=== PATIENT | male | born 1940 | race Caucasian/White ===

== ENCOUNTER → 2021-08-28 10:12 | Outpatient (BNVA) | payer OTHER, SELFPAY | PROVIDERS: PCP Internal Medicine; Visit Provider Nurse Practitioner Family | DX: G20 Parkinson's disease (principal); G47.33 Obstructive sleep apnea (adult) (pediatric); G47.62 Sleep related leg cramps | CPT/HCPCS: 99212 ==

== ENCOUNTER → 2021-11-28 10:36 | Outpatient (BNVA) | payer OTHER, SELFPAY | PROVIDERS: PCP Internal Medicine; Visit Provider Nurse Practitioner Family | DX: G20 Parkinson's disease (principal); G47.33 Obstructive sleep apnea (adult) (pediatric); G47.62 Sleep related leg cramps; S92.902D Unspecified fracture of left foot, subsequent encounter for fracture with routine healing | CPT/HCPCS: 99212 ==

== ENCOUNTER → 2022-03-05 13:53 | Outpatient (BNVA) | payer OTHER, SELFPAY | PROVIDERS: PCP Internal Medicine; Visit Provider Nurse Practitioner Family | DX: G20 Parkinson's disease (principal); M79.89 Other specified soft tissue disorders; S92.902A Unspecified fracture of left foot, initial encounter for closed fracture; G47.62 Sleep related leg cramps | CPT/HCPCS: 99212 ==

== ENCOUNTER → 2022-06-05 14:10 | Outpatient (BNVA) | payer OTHER, SELFPAY | PROVIDERS: PCP Internal Medicine; Visit Provider Nurse Practitioner Family | DX: G20 Parkinson's disease (principal); M79.89 Other specified soft tissue disorders; G47.62 Sleep related leg cramps; Z79.899 Other long term (current) drug therapy | CPT/HCPCS: 99212 ==

== ENCOUNTER → 2022-09-17 14:09 | Outpatient (BNVA) | payer OTHER, SELFPAY | PROVIDERS: PCP Internal Medicine; Visit Provider Nurse Practitioner Family | DX: G20 Parkinson's disease (principal); R42 Dizziness and giddiness | CPT/HCPCS: 99212 ==

== ENCOUNTER 2023-01-20 13:47 | Outpatient (AMB) | payer OTHER, SELFPAY ==
[2023-01-20 13:56] VITALS: BP 148/64; PULSE 70; O2SAT 98; BMI 25.3
--- NOTE | 2023-01-20 13:56 | MHC.OFFVIS ---
Intake Vital Signs 01/20/23 13:56 Height 5 ft 2 in Weight 138 lb 4 oz BMI 25.3 BP 148/64 H Blood Pressure Location Rt brachial Position Sitting Pulse 70 Pulse Source Pulse Oximeter Pulse Oximetry (%) 98 Oxygen Delivery Method Room Air Intake Visit Reasons: 4m follow up parkinson Intake Note: Pt presents with her caregiver, as a 4 month f/u for Parkinsons. pt states that things are the same. She has some concern about the swelling in her legs. Java Sql Developer Required: No Allergies Sulfa (Sulfonamide Antibiotics) Allergy (Mild, Verified 01/20/23 14:02) unknown HPI HPI Comments History of Present Illness Details 82-yr-old female presents for f/u visit, accompanied by her MEN'S AND BOYS' CLOTHING SALESPERSON. Pt reports the following interval medical history changes: In she had a hospitalization for COVID-10 and PNA. After d/c, she returned to the hospital- d/t elevated ammonia levels and was told hse had fluid around the heart d/t the COVID infection. During this visit, her furosemide dose was increased to 40mg qam. Pt's current PD medication regimen: Carbidopa-Levodopa 25-100mg 2 tabs tid. Ropinirole 0.25mg 2 tabs qhs and CD/LD ER 50-200mg qhs. ADL's: needing some assist Swallowing: No issues Cough: No issues Drooling: No issues Orthostatic lightheadedness: Mild spinning- not lasting as long. She notes that myself and her PCP have told her to take lots of fluids but cardiology has given her a diuretic and told her to not take any water at all. Constipation: None- on Lactulose per GI Freezing: None Stiffness: Some. Sometimes both hands/fingers becomes stuck and postured. Tremor: A bit better Falls: No falls Hallucinations: None Memory: Stable Sleep: Sleeps ok- a bit more, but sleep is fragmented.?? ? PFSH Medical History Anemia COPD (chronic obstructive pulmonary disease) COVID-19 Family hx total abdominal hysterectomy/bilateral salpingo-oophorectomy History of fracture of left ankle HTN (hypertension) Hypothyroidism Non-alcoholic cirrhosis Psoriatic arthritis Surgical History H/O hand surgery History of back surgery Family History Father Cancer Mother Hair loss Social History Alcohol intake: never Patient Tobacco Use Status: Never used Tobacco Review of Systems Const All systems reviewed & are unremarkable except as noted in HPI and below Physical Exam Vital Signs: Last Vital Signs Pulse 70 01/20/23 13:56 BP 148/64 H 01/20/23 13:56 Pulse Ox 98 01/20/23 13:56 Oxygen Delivery Method Room Air 01/20/23 13:56 BMI result Body Mass Index 25.3 Const General: cooperative and no acute distress Resp Effort & Inspection: normal respiratory effort and able to speak in complete sentences Neuro Other: Expression: Decreased expression and blink. Voice: Mild hypophonia Tremor: No tremor noted. Tone: Mild BUE tone FFM: BUE mildly decreased Foot taps: BLE decreased, R>L Gait: Slow to stand, short steps with and cane. Psych: Pleasant affect Extrem Other: R > L BLE swelling Assessment & Plan Assessment & Plan (1) Parkinson's disease: Code(s): G20 - Parkinson's disease (2) Orthostatic lightheadedness: Code(s): R42 - Dizziness and giddiness Plan Will request cardiology note to clarify ? fluid restriction. Would avoid increasing CD-LD or requip as this point d/t risk of worsening orthostatic lightheadedness/dizziness. ? Continue carbidopa levodopa 25-100 mg 2 tabs p.o. t.i.d. at 08:00, 12:00, 16:00. Continue carbidopa levodopa ER 50-200 mg q.h.s. at 21:00.? Continue ropinirole to 0.25 mg 1-2 tabs q.h.s. Continue magnesium q.h.s. Continue Lactulose and increased fiber. Continue PT exercises, rest as needed, elevate legs as able. Try adding FFM and foot taps exercises. Will monitor sleep symptoms as CPAP has stopped. ? f/u in 3-4 months or sooner prn Coding Level of Care Code Est Pt Level 4 (32900) Diagnoses Parkinson's disease G20 Orthostatic lightheadedness R42
== END 2023-01-20 14:43 | disposition home or self-care (01) ==
PROVIDERS: Visit Provider Nurse Practitioner Family
DX: G20 Parkinson's disease (principal); R42 Dizziness and giddiness
CPT/HCPCS: 99214

== ENCOUNTER → 2023-01-20 13:47 | Outpatient (BNVA) | payer OTHER, SELFPAY | PROVIDERS: Visit Provider Nurse Practitioner Family | DX: G20 Parkinson's disease (principal); R42 Dizziness and giddiness | CPT/HCPCS: 99212 ==

== ENCOUNTER 2023-05-26 13:59 | Outpatient (AMB) | payer OTHER, SELFPAY ==
--- NOTE | 2023-05-26 14:13 | MHC.OFFVIS ---
Intake Vital Signs 05/26/23 14:15 Height 5 ft 2 in Weight 138 lb BMI 25.2 BP 136/64 Blood Pressure Location Rt brachial Position Sitting Pulse 71 Pulse Source Pulse Oximeter Pulse Oximetry (%) 99 Oxygen Delivery Method Room Air Intake Visit Reasons: 4m follow up parkinson/ Lvm Intake Note: Patient presents for 4 month follow up. Allergies Sulfa (Sulfonamide Antibiotics) Allergy (Mild, Verified 05/26/23 14:15) unknown Medication List - Last Reconciled 05/26/23 by TARIQ Caban albuterol sulfate 90 mcg/actuation (Ventolin HFA) 2 puffs PO Q4H PRN ascorbate calcium (vitamin C) 500 mg PO DAILY biotin 5,000 mcg sublingual DAILY blood sugar diagnostic (FreeStyle Lite Strips) As directed blood-glucose meter (FreeStyle Lite Meter kit) As directed carbidopa-levodopa 25-100 mg (Sinemet) 2 tabs PO TID 90 days carbidopa-levodopa 50-200 mg ER 1 tab PO BEDTIME 90 days cholecalciferol (vitamin D3) 125 mcg PO QWEEK fluticasone furoate-vilanterol 100-25 mcg/dose (Breo Ellipta) 1 ea inhalation DAILY furosemide 40 mg PO DAILY gabapentin 600 mg PO BID insulin asp prt-insulin aspart 100 unit/mL (70-30) (Novolog Mix 70-30 U-100 Insuln) 50 units subcut BID insulin asp prt-insulin aspart 100 unit/mL (70-30) (Novolog Mix 70-30FlexPen U-100) 30 - 40 units subcut BID ketorolac 0.5% 1 drp ophthalmic (eye) TID lactulose mL PO levothyroxine 100 mcg PO DAILY losartan 100 mg PO DAILY mecobalamin (vitamin B12) mcg PO montelukast 10 mg PO DAILY rifaximin (Xifaxan) 550 mg PO BID ropinirole 0.5 mg (2 x 0.25 mg) PO BEDTIME 30 days trazodone 100 mg PO BEDTIME vitamins A,C,F-typt-gzcfom 4,296 mcg-226 mg-90 mg (PreserVision AREDS) 1 cap PO BID HPI HPI Comments History of Present Illness Details 82 -yr-old female presents for f/u visit, accompanied by her CERTIFIED PHYSICAL THERAPIST ASSISTANT. Pt denies any interval medical changes. Pt's primary concerns are: Increased am tremor. even after taking her CD-LD- for instance today she dropped her spoon while eating breakfast. Wakes up at 8-8:30am, 1st dose of CD-LD at this time. Eats around 9-9:30.? Pt's current PD medication regimen: Carbidopa-Levodopa 25-100mg 2 tabs tid. Ropinirole 0.25mg 2 tabs qhs and CD/LD ER 50-200mg qhs at 10pm. ADL's: needing some assist Swallowing: No issues Cough: No issues Drooling: No issues Orthostatic lightheadedness: Mild Constipation: None- on Lactulose per GI Freezing: None Stiffness: Some. Sometimes both hands/fingers becomes stuck and postured. Tremor: As above. Gait: Can feel like there is no weight in her legs Falls: No falls Hallucinations: None Memory: Stable Sleep: Sleeps is fragmented- just not sleeping. Sometimes even taking Requip- she has BLE restlessness- and needs to get up and walk.? [facility] Medical History Anemia COPD (chronic obstructive pulmonary disease) COVID-19 Family hx total abdominal hysterectomy/bilateral salpingo-oophorectomy History of fracture of left ankle HTN (hypertension) Hypothyroidism Non-alcoholic cirrhosis Psoriatic arthritis Surgical History H/O hand surgery History of back surgery Family History Father Cancer Mother Hair loss Social History Alcohol intake: never Patient Tobacco Use Status: Never used Tobacco Review of Systems Const All systems reviewed & are unremarkable except as noted in HPI and below Physical Exam Vital Signs: Last Vital Signs Pulse 71 05/26/23 14:15 BP 136/64 05/26/23 14:15 Pulse Ox 99 05/26/23 14:15 Oxygen Delivery Method Room Air 05/26/23 14:15 BMI result Body Mass Index 25.2 Const General: cooperative and no acute distress Resp Effort & Inspection: normal respiratory effort and able to speak in complete sentences Neuro Other: General: A&O x's 3 Expression: Decreased expression and blink. Voice: Mild hypophonia Tremor: No tremor noted. Tone: Mild BUE tone FFM: BUE mildly decreased Foot taps: BLE bradykinesia, R>L Gait: Needs assist and is slow to stand, short steps, steady w/ cane. Psych: Pleasant affect Assessment & Plan Assessment & Plan (1) Parkinson's disease without dyskinesia: Code(s): G20.A1 - Parkinson's disease without dyskinesia, without mention of fluctuations (2) Nocturnal leg cramps: Code(s): G47.62 - Sleep related leg cramps Plan Continue carbidopa levodopa 25-100 mg 2 tabs p.o. t.i.d. at 08:00, 12:00, 16:00. Continue carbidopa levodopa ER 50-200 mg q.h.s. at 21:00.? Add Ropinirole ER 2mg qhs at 10pm- in hopes this helps am tremor and bedtime RLS s/s. On 1st few days of taking Ropiniorle XR- try holding ropinirole 0.25 mg 1-2 tabs q.h.s. Continue magnesium q.h.s. Continue Lactulose and increased fiber. Continue PT exercises, rest as needed, elevate legs as able. Try adding FFM and foot taps exercises. Will monitor sleep symptoms as CPAP has stopped. ? f/u in 3-4 months or sooner prn Medications: New ropinirole ER at 10 PM 2 mg PO BEDTIME 30 days 30 tabs 3RF Coding Level of Care Code Est Pt Level 4 (52994) Diagnoses Parkinson's disease without dyskinesia G20.A1 Nocturnal leg cramps G47.62
[2023-05-26 14:15] VITALS: BP 136/64; PULSE 71; O2SAT 99; BMI 25.2
== END 2023-05-26 14:57 | disposition home or self-care (01) ==
PROVIDERS: PCP Internal Medicine; Visit Provider Nurse Practitioner Family
DX: G20.A1 Parkinson's disease without dyskinesia, without mention of fluctuations (principal); G47.62 Sleep related leg cramps
CPT/HCPCS: 99214

== ENCOUNTER → 2023-05-26 13:59 | Outpatient (BNVA) | payer OTHER, SELFPAY | PROVIDERS: PCP Internal Medicine; Visit Provider Nurse Practitioner Family | DX: G20.A1 Parkinson's disease without dyskinesia, without mention of fluctuations (principal); G47.62 Sleep related leg cramps | CPT/HCPCS: 99212 ==

== ENCOUNTER 2023-09-22 14:07 | Outpatient (AMB) | payer OTHER, SELFPAY ==
[2023-09-22 14:21] VITALS: BP 130/78; PULSE 77; O2SAT 98; BMI 27.1
--- NOTE | 2023-09-22 14:21 | MHC.OFFVIS ---
Intake Vital Signs 09/22/23 14:21 Height 5 ft 2 in Weight 148 lb BMI 27.1 BP 130/78 Blood Pressure Location Rt brachial Position Sitting Pulse 77 Pulse Source Pulse Oximeter Pulse Oximetry (%) 98 Oxygen Delivery Method Room Air Intake Visit Reasons: 4 mnts f/u Parkinson's, RLS-CONF Intake Note: Patient presents for follow up parkinson's. Allergies Sulfa (Sulfonamide Antibiotics) Allergy (Mild, Verified 09/22/23 14:26) unknown HPI HPI Comments History of Present Illness Details 82 -yr-old female presents for f/u visit, accompanied by her MASS SPEC. Pt denies any interval medical changes. She is scheduled for a f/u abd MRI- to better assess a pancreatic lesion. Pt did try Requip XR 2mg qhs- but did not tolerate and did not find effective, so we added a CD-LD ER 50-200mg 7pm dose and Nourianz 20mg qhs dose- which has been helpful. Pt's current PD medication regimen: Carbidopa-Levodopa 25-100mg 2 tabs tid. CD/LD ER 50-200mg 1 tab at 7pm and 11pm. Ropinirole 0.25mg 2 tabs qhs. Nourianz 20mg qhs. ADL's: needing some assist Swallowing: No issues Cough: No issues Drooling: No issues Orthostatic lightheadedness: Can feel not right in space sensation upon standing. Maybe does not drink enough. Constipation: None- on Lactulose per GI Freezing: At times. Stiffness: Can be stiff. Sometimes both hands/fingers becomes stuck and postured. Tremor: As above. Gait: Can feel like her legs are not able to hold up her body- more so after standing up. No falls. Falls: No falls Hallucinations: None Memory: Stable Sleep: Sleeping is better. Restlessness is better. PFSH Medical History Anemia COPD (chronic obstructive pulmonary disease) COVID-19 Family hx total abdominal hysterectomy/bilateral salpingo-oophorectomy History of fracture of left ankle HTN (hypertension) Hypothyroidism Non-alcoholic cirrhosis Psoriatic arthritis Surgical History H/O hand surgery History of back surgery Family History Father Cancer Mother Hair loss Social History Alcohol intake: never Patient Tobacco Use Status: Never used Tobacco Review of Systems Const All systems reviewed & are unremarkable except as noted in HPI and below Physical Exam Vital Signs: Last Vital Signs Pulse 77 09/22/23 14:21 BP 130/78 09/22/23 14:21 Pulse Ox 98 09/22/23 14:21 Oxygen Delivery Method Room Air 09/22/23 14:21 BMI result Body Mass Index 27.1 Const General: cooperative and no acute distress Resp Effort & Inspection: normal respiratory effort and able to speak in complete sentences Neuro Other: General: A&O x's 3 Expression: Decreased expression and blink. Voice: Mild hypophonia Tremor: No tremor noted. Tone: Mild BUE tone FFM: BUE mildly decreased Foot taps: BLE bradykinesia Gait: Needs assist and is slow to stand, short steps, steady w/ cane. Psych: Pleasant affect Assessment & Plan Assessment & Plan (1) Parkinson's disease without dyskinesia: Code(s): G20.A1 - Parkinson's disease without dyskinesia, without mention of fluctuations (2) Orthostatic lightheadedness: Code(s): R42 - Dizziness and giddiness (3) Obstructive sleep apnea: Comment: HST: AHI 16 per hour, REM AHI 21 per hour, O2 asuncion 74%. Patient did not tolerate CPAP. Code(s): G47.33 - Obstructive sleep apnea (adult) (pediatric) (4) Nocturnal leg cramps: Code(s): G47.62 - Sleep related leg cramps Plan Continue carbidopa levodopa 25-100 mg 2 tabs p.o. t.i.d. at 08:00, 12:00, 16:00. Continue carbidopa levodopa ER 50-200 mg q.h.s. at 7pm and 11pm.? Ropinirole ER 2mg qhs- stopped- not effective or tolerated. Continue Ropinirole 0.25 mg 2 tabs q.h.s. Continue Nourianz 20mg at bedtime. Continue magnesium q.h.s. prn. Continue Lactulose and increased fiber. Increase fluids. Resume PT exercises, rest as needed, elevate legs as able. Will monitor sleep symptoms as CPAP has stopped. ? f/u in 4 months or sooner prn Coding Level of Care Code Est Pt Level 4 (23835) Diagnoses Parkinson's disease without dyskinesia G20.A1 Orthostatic lightheadedness R42 Obstructive sleep apnea G47.33 Nocturnal leg cramps G47.62
== END 2023-09-22 15:26 | disposition home or self-care (01) ==
PROVIDERS: PCP Internal Medicine; Visit Provider Nurse Practitioner Family
DX: G20.A1 Parkinson's disease without dyskinesia, without mention of fluctuations (principal); R42 Dizziness and giddiness; G47.33 Obstructive sleep apnea (adult) (pediatric); G47.62 Sleep related leg cramps
CPT/HCPCS: 99214

== ENCOUNTER → 2023-09-22 14:07 | Outpatient (BNVA) | payer OTHER, SELFPAY | PROVIDERS: PCP Internal Medicine; Visit Provider Nurse Practitioner Family | DX: G20.A1 Parkinson's disease without dyskinesia, without mention of fluctuations (principal); G25.81 Restless legs syndrome; G47.62 Sleep related leg cramps; G47.33 Obstructive sleep apnea (adult) (pediatric); R42 Dizziness and giddiness | CPT/HCPCS: 99212 ==

== ENCOUNTER 2024-01-18 11:34 | Outpatient (AMB) | payer OTHER, SELFPAY ==
[2024-01-18 11:34] VITALS: BP 112/54; PULSE 78; O2SAT 98; BMI 27.1
--- NOTE | 2024-01-18 11:34 | MHC.OFFVIS ---
Vital Signs 01/18/24 11:34 Height 5 ft 2 in Weight 148 lb BMI 27.1 BP 112/54 L Blood Pressure Location Rt brachial Position Sitting Pulse 78 Pulse Source Pulse Oximeter Pulse Oximetry (%) 98 Oxygen Delivery Method Room Air Intake Visit Reasons: 4 Month Follow up- Parkinson's-RLS Intake Note: Patient presents for 4 month follow up parkinsons. patient wants to now if she still has to continue meds you prescribed. Allergies Sulfa (Sulfonamide Antibiotics) Allergy (Mild, Verified 01/18/24 11:38) unknown HPI Comments Details: 83-yr-old female presents for f/u visit. Pt denies any significant interval medical history changes. Pt's primary concerns are: wonders how long she needs to take the PD medications. Wonders the same about her lactulose. Pt's current PD medication regimen: Carbidopa-Levodopa 25-100mg 2 tabs tid. CD/LD ER 50-200mg 1 tab at 7pm and 11pm. Ropinirole 0.25mg 2 tabs qhs. Nourianz 20mg qhs. ADL's: needing some assist Swallowing: No issues Cough: No issues Drooling: No issues Orthostatic lightheadedness: Occasionally- can feel not right in space sensation upon standing. Notes she does not feel it when the wetaher is much warmer. Constipation: None- on Lactulose per GI : no issues. Freezing: At times. Stiffness: Can be stiff. Sometimes both hands/fingers becomes stuck and postured. Tremor: Very mild- in the morning. Gait: No falls. Falls: No falls Hallucinations: None Memory: Stable Mood: No concerns Sleep: Sleeping is better. Restless legs - at times. Paresthesias- the sides of both feet have been feeling more numb. Denies tingling. Feels generally weaker when walking. Exercise: At times- at home. Other: Notes her peripheral edema has been much better. [facility] Medical History (Updated 01/18/24 @ 12:20 by TARIQ Caban) Parkinson's disease COVID-19 History of fracture of left ankle Psoriatic arthritis Non-alcoholic cirrhosis Hypothyroidism HTN (hypertension) COPD (chronic obstructive pulmonary disease) Anemia Family hx total abdominal hysterectomy/bilateral salpingo-oophorectomy Surgical History H/O hand surgery History of back surgery Family History Father Cancer Mother Hair loss Social History Alcohol intake: never Patient Tobacco Use Status: Never used Tobacco Review of Systems Const All systems reviewed & are unremarkable except as noted in HPI and below Physical Exam Vital Signs: Last Vital Signs Pulse 78 01/18/24 11:34 BP 112/54 L 01/18/24 11:34 Pulse Ox 98 01/18/24 11:34 Oxygen Delivery Method Room Air 01/18/24 11:34 BMI result Body Mass Index 27.1 Const General: cooperative and no acute distress Resp Effort & Inspection: normal respiratory effort and able to speak in complete sentences Neuro Other: General: A&O x's 3 Expression: Decreased expression and blink. Voice: Mild hypophonia Tremor: No tremor noted. Tone: Mild BUE tone FFM: BUE mildly decreased Foot taps: BLE bradykinesia Gait: Needs assist and is slow to stand, decreased arm swing, short steps, steady w/ cane. Psych: Pleasant affect Assessment & Plan Assessment & Plan (1) Parkinson's disease without dyskinesia: Code(s): G20.A1 - Parkinson's disease without dyskinesia, without mention of fluctuations Category: Medical (2) Orthostatic lightheadedness: Code(s): R42 - Dizziness and giddiness Category: Medical (3) Nocturnal leg cramps: Code(s): G47.62 - Sleep related leg cramps Category: Medical Plan Continue carbidopa levodopa 25-100 mg 2 tabs p.o. t.i.d. at 08:00, 12:00, 16:00. Continue carbidopa levodopa ER 50-200 mg q.h.s. at 7pm and 11pm.? Continue Ropinirole 0.25 mg 2 tabs q.h.s. Continue Nourianz 20mg at bedtime. Continue magnesium q.h.s. prn. Continue Lactulose and increased fiber- per GI. Encouraged pt to increase fluids- discussed different strategies as pt is often not thirsty. Physical exercise/activity as tolerated. Will monitor sleep symptoms as CPAP has stopped. Previous PD medication trials: Ropinirole ER 2mg qhs- stopped- not effective or tolerated. ? f/u in 4-6 months or sooner prn Coding Level of Care Code Est Pt Level 4 (21268) Diagnoses Parkinson's disease without dyskinesia G20.A1 Orthostatic lightheadedness R42 Nocturnal leg cramps G47.62
== END 2024-01-18 12:16 | disposition home or self-care (01) ==
PROVIDERS: PCP Internal Medicine; Visit Provider Nurse Practitioner Family
DX: G20.A1 Parkinson's disease without dyskinesia, without mention of fluctuations (principal); R42 Dizziness and giddiness; G47.62 Sleep related leg cramps
CPT/HCPCS: 99214

== ENCOUNTER → 2024-01-18 11:34 | Outpatient (BNVA) | payer OTHER, SELFPAY | PROVIDERS: PCP Internal Medicine; Visit Provider Nurse Practitioner Family | DX: G20.A1 Parkinson's disease without dyskinesia, without mention of fluctuations (principal); R42 Dizziness and giddiness; G47.62 Sleep related leg cramps | CPT/HCPCS: 99212 ==

== ENCOUNTER 2024-08-08 10:53 | Outpatient (AMB) | payer OTHER, SELFPAY ==
--- NOTE | 2024-08-08 11:02 | MHC.OFFVIS ---
Vital Signs 08/08/24 11:07 Height 5 ft 2 in Weight 155 lb BMI 28.3 BP 130/60 Blood Pressure Location Rt brachial Position Sitting Pulse 86 Pulse Source Pulse Oximeter Pulse Oximetry (%) 94 Oxygen Delivery Method Room Air Intake Visit Reasons: Follow up- Parkinson's - Conf Abrasive Mixer Helper Required: No Accompanied by: Son Allergies Sulfa (Sulfonamide Antibiotics) Allergy (Mild, Verified 08/08/24 11:04) unknown Medication List - Last Reconciled 08/08/24 by TARIQ Caban albuterol sulfate 90 mcg/actuation (Ventolin HFA) 2 puffs PO Q4H PRN ascorbate calcium (vitamin C) 500 mg PO DAILY biotin 5,000 mcg sublingual DAILY blood sugar diagnostic (FreeStyle Lite Strips) As directed blood-glucose meter (FreeStyle Lite Meter kit) As directed carbidopa-levodopa 25-100 mg (Sinemet) 2 tabs PO TID 90 days carbidopa-levodopa 50-200 mg ER 1 tab PO BID 90 days cholecalciferol (vitamin D3) 125 mcg PO QWEEK fluticasone furoate-vilanterol 100-25 mcg/dose (Breo Ellipta) 1 ea inhalation DAILY furosemide 40 mg PO DAILY gabapentin 600 mg PO BID insulin asp prt-insulin aspart 100 unit/mL (70-30) (Novolog Mix 70-30 U-100 Insuln) 50 units subcut BID insulin asp prt-insulin aspart 100 unit/mL (70-30) (Novolog Mix 70-30FlexPen U-100) 30 - 40 units subcut BID istradefylline (Nourianz) 20 mg PO DAILY 30 days lactulose mL PO levothyroxine 100 mcg PO DAILY losartan 100 mg PO DAILY mecobalamin (vitamin B12) mcg PO montelukast 10 mg PO DAILY rifaximin (Xifaxan) 550 mg PO BID ropinirole 1 mg (4 x 0.25 mg) PO BEDTIME 30 days trazodone 100 mg PO BEDTIME HPI Comments Details: 83-yr-old female presents for f/u visit for Parkinson's. Pt denies any significant interval medical history changes. States her liver dz is stable. She is most bothered by her bone pain, notes that DR Kebede, rheumatology tx's her w/ injection every few months, which heleps but wears off. Recently the pain was so intense, she was tx'd w/ an 8 day prednisone burst- which helped but caused her blood sugars to increase. She does not notice that her CD-LD affects this pain. Pt's primary concerns are: status of her Nourianz refill. Pt's current PD medication regimen: Carbidopa-Levodopa 25-100mg 2 tabs tid. CD/LD ER 50-200mg 1 tab at 7pm and 11pm. Ropinirole 0.25mg 2 tabs at 9pm and 11pm. Nourianz 20mg qhs. Note she has not taken magnesium in some time-states it was discontinued during hospitalization at some point. ADL's: needing some assist Swallowing: No issues Cough: No issues Drooling: During the day/night. Orthostatic lightheadedness: Occasionally- can feel not right in space sensation upon standing- like nothing is below her waist. Constipation: None- on Lactulose per GI : No issues. Stiffness: Can be stiff. Sometimes both hands/fingers becomes stuck and postured. Tremor: Very mild- in the morning. Gait: Walks better inside- holds onto the escobedo, and sometimes uses her cane. Her apartment is small. When outside, she is more prone to becoming stuck. Freezing: as above Falls: No falls Hallucinations: None Memory: Stable Mood: No concerns Sleep: Not as well- falls asleep, but then wakes up, and then tosses/turns. Restless legs- states are not that bad. Has some leg cramps at night. Paresthesias- the skin of the ankles feels tight/stretched, but not numbness. Exercise: Not as much. Other: Notes her peripheral edema has been better.. [facility] Medical History (Updated 08/08/24 @ 13:50 by TARIQ Caban) Parkinson's disease COVID-19 History of fracture of left ankle Psoriatic arthritis Non-alcoholic cirrhosis Hypothyroidism HTN (hypertension) COPD (chronic obstructive pulmonary disease) Anemia Family hx total abdominal hysterectomy/bilateral salpingo-oophorectomy Surgical History H/O hand surgery History of back surgery Family History Father Cancer Mother Hair loss Social History Alcohol intake: never Patient Tobacco Use Status: Never used Tobacco Physical Exam Vital Signs: Last Vital Signs Pulse 86 08/08/24 11:07 BP 130/60 08/08/24 11:07 Pulse Ox 94 08/08/24 11:07 Oxygen Delivery Method Room Air 08/08/24 11:07 BMI result Body Mass Index 28.3 Const General: cooperative and no acute distress Resp Effort & Inspection: normal respiratory effort and able to speak in complete sentences Neuro Other: General: A&O x's 3 Expression: Decreased expression and blink. Voice: Mild hypophonia Tremor: No tremor noted. Tone: Mild BUE tone FFM: BUE mildly decreased Foot taps: BLE bradykinesia, more so on right Skin: BLE distal ankle symmetric mild swelling. Gait: Needs assist and is slow to stand, decreased arm swing, short steps, steady w/ cane. Psych: Pleasant affect Assessment & Plan Assessment & Plan (1) Parkinson's disease without dyskinesia: Code(s): G20.A1 - Parkinson's disease without dyskinesia, without mention of fluctuations Category: Medical (2) Orthostatic lightheadedness: Code(s): R42 - Dizziness and giddiness Category: Medical (3) Nocturnal leg cramps: Code(s): G47.62 - Sleep related leg cramps Category: Medical (4) Sleep difficulties: Code(s): G47.9 - Sleep disorder, unspecified Category: Medical Plan Continue carbidopa levodopa 25-100 mg 2 tabs p.o. t.i.d. at 08:00, 12:00, 16:00. Continue carbidopa levodopa ER 50-200 mg q.h.s. at 7pm and 11pm.? Continue Ropinirole 0.25 mg 2 tabs at 9pm and 11pm Continue Nourianz 20mg at bedtime- confirmed with pharmacy, Prior authorization has been approved and order is being filled. Resume magnesium oxide 400 mg q.h.s. prn- for leg cramps, and sleep difficulties. Continue Lactulose and increased fiber- per GI. Continue to try to take increased fluids. Physical exercise/activity as tolerated. Discussed simple strategies to break freezing episodes when walking outside- such as stepping in place or tapping her hip with her hand. Will monitor sleep symptoms as patient is no longer using CPAP.. Previous PD medication trials: Ropinirole ER 2mg qhs- stopped- not effective or tolerated. ? f/u in 6 months or sooner prn Medications: Refilled magnesium oxide 400 mg PO BEDTIME 30 days 30 tabs 6RF carbidopa-levodopa 25-100 mg (Sinemet) 2 tabs PO TID 90 days 540 tabs 1RF Coding Level of Care Code Est Pt Level 4 (48612) Diagnoses Parkinson's disease without dyskinesia G20.A1 Orthostatic lightheadedness R42 Nocturnal leg cramps G47.62 Sleep difficulties G47.9
[2024-08-08 11:07] VITALS: BP 130/60; PULSE 86; O2SAT 94; BMI 28.3
== END 2024-08-08 11:57 | disposition home or self-care (01) ==
PROVIDERS: PCP Internal Medicine; Visit Provider Nurse Practitioner Family
DX: G20.A1 Parkinson's disease without dyskinesia, without mention of fluctuations (principal); R42 Dizziness and giddiness; G47.62 Sleep related leg cramps; G47.9 Sleep disorder, unspecified
CPT/HCPCS: 99214

== ENCOUNTER → 2024-08-08 10:53 | Outpatient (BNVA) | payer OTHER, SELFPAY | PROVIDERS: PCP Internal Medicine; Visit Provider Nurse Practitioner Family | DX: G20.A1 Parkinson's disease without dyskinesia, without mention of fluctuations (principal); G47.62 Sleep related leg cramps; G47.9 Sleep disorder, unspecified; R42 Dizziness and giddiness | CPT/HCPCS: 99212 ==

== ENCOUNTER 2025-02-09 10:24 | Outpatient (AMB) | payer OTHER, SELFPAY ==
[2025-02-09 10:41] VITALS: BP 130/60; PULSE 77; O2SAT 96; BMI 27.8
--- NOTE | 2025-02-09 10:41 | MHC.OFFVIS ---
Vital Signs 02/09/25 10:41 Height 5 ft 2 in Weight 152 lb BMI 27.8 BP 130/60 Blood Pressure Location Rt brachial Position Sitting Pulse 77 Pulse Source Pulse Oximeter Pulse Oximetry (%) 96 Oxygen Delivery Method Room Air Intake Visit Reasons: Follow up 6mo Photography Spotter Required: No Accompanied by: Self / Same As Patient Allergies Sulfa (Sulfonamide Antibiotics) Allergy (Mild, Verified 02/09/25 10:53) unknown Medication List - Last Reconciled 02/09/25 by TARIQ Caban albuterol sulfate 90 mcg/actuation (Ventolin HFA) 2 puffs PO Q4H PRN ascorbate calcium (vitamin C) 500 mg PO DAILY biotin 5,000 mcg sublingual DAILY blood sugar diagnostic (FreeStyle Lite Strips) As directed blood-glucose meter (FreeStyle Lite Meter kit) As directed carbidopa-levodopa 25-100 mg (Sinemet) 2 tabs PO TID 90 days carbidopa-levodopa 50-200 mg ER 1 tab PO BID 90 days cholecalciferol (vitamin D3) 125 mcg PO QWEEK ferrous sulfate 325 mg PO DAILY fluticasone furoate-vilanterol 100-25 mcg/dose (Breo Ellipta) 1 ea inhalation DAILY folic acid 1 mg PO DAILY furosemide 25 mg PO DAILY furosemide (Lasix) 20 mg PO DAILY gabapentin 600 mg PO BID gabapentin 100 - 300 mg (1 - 3 x 100 mg) PO DAILY 30 days insulin asp prt-insulin aspart 100 unit/mL (70-30) (Novolog Mix 70-30 U-100 Insuln) 50 units subcut BID insulin asp prt-insulin aspart 100 unit/mL (70-30) (Novolog Mix 70-30FlexPen U-100) 30 - 40 units subcut BID istradefylline (Nourianz) 20 mg PO DAILY 30 days istradefylline (Nourianz) 20 mg PO DAILY lactulose mL PO levofloxacin 250 mg PO DAILY levothyroxine 100 mcg PO DAILY losartan 100 mg PO DAILY magnesium oxide 400 mg PO BEDTIME 30 days mecobalamin (vitamin B12) mcg PO montelukast 10 mg PO DAILY pantoprazole 40 mg PO DAILY rifaximin (Xifaxan) 550 mg PO BID ropinirole 1 mg (4 x 0.25 mg) PO BEDTIME 30 days spironolactone 25 mg PO DAILY trazodone 100 mg PO BEDTIME HPI Comments Details: 84-yr-old female presents for f/u visit for Parkinson's. Patient is accompanied by her [facility] critical care unit nurse, as her son could not attend today's appointment with her. Pt reports she had 2-3 hospital evals- 1 admission to manage her ammonia levels as she became confused, 1 admission for PNA tx, and 1 had ER eval for GI s/s dehydration and diarrhea. Since she states her liver dz is stable. However, notes that she has difficulty taking her lactulose as advised, as this caused watery stools. With the quickness to do a not give a meds for it I sent him to ortho or PT or OT She is f/b DR Kebede, rheumatology tx's her w/ injection every few months for bone/joint pain. Pt's primary concerns are: she is noticing increased tremor in the last week- states she is waking up shaky which lasts until 1pm. Pt's current PD medication regimen: Carbidopa-Levodopa 25-100mg 2 tabs tid. CD/LD ER 50-200mg 1 tab at 7pm and 11pm. Ropinirole 0.25mg 2 tabs at 9pm and 11pm. Nourianz 20mg qhs. Magnesium. ADL's: needing some assist Swallowing: No issues Cough: No issues Drooling: During the day/night. Orthostatic lightheadedness: Denies Constipation: None- on Lactulose per GI : No issues. Stiffness: Can feel more stiff, especially when she wakes up in the am. Sometimes both hands/fingers becomes stuck and postured. Tremor: increased Gait: Walks better in her new home, using the cane at times, but uses the walker more when outside- feels safer. Freezing: denies Falls: denies interval falls. Hallucinations: None Memory: Stable Mood: No concerns Sleep: Not much - falls asleep, but then wakes up, and then tosses/turns. Goes to bed after 11pm, then falls asleep and wakes up, and then sleeps on and off through the night. Gets up for 8am to take the 1st dose of CD-LD. Denies daytime naps. Denies bothersome restlessness, restless legs, or leg cramps. Using trazodone for sleep. Paresthesias- the skin of the ankles feels tight/stretched has improved Exercise: walking in the house Other: Notes her peripheral edema has been better.. [facility] Medical History (Updated 02/09/25 @ 12:39 by TARIQ Caban) Parkinson's disease COVID-19 History of fracture of left ankle Psoriatic arthritis Non-alcoholic cirrhosis Hypothyroidism HTN (hypertension) COPD (chronic obstructive pulmonary disease) Anemia Family hx total abdominal hysterectomy/bilateral salpingo-oophorectomy Surgical History H/O hand surgery History of back surgery Family History Father Cancer Mother Hair loss Social History Alcohol intake: never Patient Tobacco Use Status: Never used Tobacco Physical Exam Vital Signs: Last Vital Signs Pulse 77 02/09/25 10:41 BP 130/60 02/09/25 10:41 Pulse Ox 96 02/09/25 10:41 Oxygen Delivery Method Room Air 02/09/25 10:41 BMI result Body Mass Index 27.8 Const General: cooperative and no acute distress Resp Effort & Inspection: normal respiratory effort and able to speak in complete sentences Neuro Other: General: A&O x's 3 Expression: Decreased expression and blink. Voice: Mild hypophonia Tremor: Mild are UE postural tremor Tone: Mild BUE tone FFM: BUE mildly decreased, more so on right Foot taps: BLE bradykinesia, more so on right Skin: No appreciable lower extremity swelling today Gait: Needs assist and slow to stand, decreased arm swing, short steps, steady w/ walker. Psych: Pleasant affect Assessment & Plan Assessment & Plan (1) Parkinson's disease without dyskinesia: Code(s): G20.A1 - Parkinson's disease without dyskinesia, without mention of fluctuations Category: Medical Qualifiers: Fluctuating manifestations: with fluctuating manifestations Qualified Code(s): G20.A2 - Parkinson's disease without dyskinesia, with fluctuations (2) Orthostatic lightheadedness: Code(s): R42 - Dizziness and giddiness Category: Medical (3) Nocturnal leg cramps: Code(s): G47.62 - Sleep related leg cramps Category: Medical (4) Sleep difficulties: Code(s): G47.9 - Sleep disorder, unspecified Category: Medical Plan Patient is experiencing greater than 3 hours of Parkinson's off time per day, which is likely exacerbated by her chronic cirrhosis treatment regimen, and thus patient would benefit from her levodopa therapy administration bypassing the GI tract. Thus, discussed stopping her oral carbidopa levodopa IR/ER therapies in favor of starting Yvalev foscarbidopa foslevodopa, as this would likely significantly reduce this patient's PD off time, and improve her overall quality of life. Information shared with patient and her [facility] case repairer to review further. Patient will reach out to us if she decides to pursue Vyalev. Discussed the distinction between Parkinson's tremor and the tremor that maybe seen in hepatic encephalopathy, such as flapping hand tremor, also called Asterixis. Additionally, showed patient a video of an example of laughing hand tremor. This may help patient and son identify signs of increasing serum ammonia levels. In the meantime, continue: Continue carbidopa levodopa IR 25-100 mg 2 tabs p.o. t.i.d. at 08:00, 12:00, 16:00. Continue carbidopa levodopa ER 50-200 mg q.h.s. at 7pm and 11pm.? Continue Ropinirole 0.25 mg 2 tabs at 9pm and 11pm Continue Nourianz 20mg at bedtime. Continue magnesium oxide 400 mg q.h.s. prn- for leg cramps, and sleep difficulties. Continue Lactulose and increased fiber- per GI. Continue to try to take increased fluids. Physical exercise/activity as tolerated. Previously discussed simple strategies to break freezing episodes when walking outside- such as stepping in place or tapping her hip with her hand. Will monitor sleep symptoms as patient is no longer using CPAP. Previous PD medication trials: Ropinirole ER 2mg qhs- stopped- not effective or tolerated. ? f/u in 6 months or sooner prn Coding Level of Care Code Est Pt Level 4 (84727) Complex EM visit Add On G2211 Diagnoses Parkinson's disease without dyskinesia, with fluctuating manifestations G20.A2 Fluctuating manifestations: with fluctuating manifestations Orthostatic lightheadedness R42 Nocturnal leg cramps G47.62 Sleep difficulties G47.9
--- OUTSIDE RECORDS SUMMARY | 2025-02-09 11:13 | XMS_ITS | Encounter Summary ---
Author Organization [employer] Address [address] [place] [address] Care Team Providers Care Service Tester Name Role Phone Tuan Kaur MD Primary Care Provider [phone] Encounter Details Date Type Department Care Team (Latest Contact Info) Description 09/03/2024 Lab Requisition [facility] - Main Lab [address] [facility] [place] [phone] Tuan Kaur MD [address] [place] [address] Other pancytopenia (CMS/HCC V24, CMS/HCC V28); Mild intermittent asthma, uncomplicated Social History Tobacco Use Types Packs/Day Years Used Date Smoking Tobacco: Never Smokeless Tobacco: Never Alcohol Use Standard Drinks/Week Comments Not Currently 0 (1 standard drink = 0.6 oz pur e alcohol) Comments Unknown Sex and Gender Information Value Date Recorded Sex Assigned at Female 04/26/2024 11:38 AM EDT Legal Sex Female 9:43 AM EST Gender Identity Female 04/26/2024 11:38 AM EDT Sexual Orientation Straight 04/26/2024 11 :38 AM EDT documented as of this encounter Plan of Treatment Upcoming Encounters Date Type Department Care Team (Late st Contact Info) Description 03/21/2025 11:00 AM EDT Ancillary Procedure [facility] [address] [place] [address] 04/03/2025 11:30 AM EDT Office Visit [facility] Hematology Oncology [address] [place] [phone] Melinda Rangel DO [address] [place] [address] 05/26/2025 10:40 AM EST Office Visit Gastroenterology - [address] [facility] [address] [phone] Michelle Portillo MD [address] [address] Scheduled Orders Name Type Priority Associated Diagnoses Orde r Schedule Basic metabolic panel Lab Routine Other pancytopenia (CMS/[facility]) Ordered: 09/03/2024 CBC and differential Lab Routine Mild intermittent asthma, uncomplicated Ordered: 09/03/2024 documented as of this encounter Visit Diagnoses Diagnosis Other pancytopenia (CMS/HCC V24, CMS/HCC V28) Other pancytopenia Mild intermittent asthma, uncomplicated documented in this encounter Care Teams Service Tester Relationship Specialty Start Date End Date Tuan Kaur MD [address] [place] [address] PCP - General 03/31/24 documented as of this encounter
--- OUTSIDE RECORDS SUMMARY | 2025-02-09 11:13 | XMS_ITS | Clinical Summary ---
Author Organization [facility] Address [address] [place] [address] Care Team Providers Care Tile Finisher Name Role Phone Tuan Kaur MD Primary Care Provider [phone] Allergies Active Allergy Reactions Criticality Noted Date Comments Sulfa Antibiotics 08/05/2021 Medications Medication Sig Dispensed Refills Start Date End Date Status insulin aspart protamine-insulin aspart (NovoLOG MIX 70/30) injection 100 units/mL Inject under the skin 2 (two) times a day before breakfast and dinner. 0 Active Albuterol Sulfate (VENTOLIN HFA IN) Inhale into the lungs. 0 Active levothyroxine (SYNTHROID) tablet 100 mcg Take 100 mcg by mouth every morning on an empty stomach. 0 Active losartan (COZAAR) 100 MG tablet Take 100 mg by mouth daily. 0 Active metFORMIN (GLUCOPHAGE) tablet 1000 mg Take 1,000 mg by mouth every morning with breakfast. 0 Active montelukast (SINGULAIR) 10 MG tablet Take 10 mg by mouth every night at bedtime. 0 Active gabapentin (NEURONTIN) 600 MG tablet Take 600 mg by mouth 3 (three) times a day. 0 Active lactulose (CHRONULAC) 10 GM/15ML solution Take by mouth. 0 A ctive traZODone (DESYREL) 100 MG tablet Take 100 mg by mouth every night at bedtime. 0 Active MAGNESIUM OXIDE 400 PO Take by mouth. 0 Active rifAXIMin (Xifaxan) 550 MG TABS tablet Take 550 mg by mouth 2 (two) times a day. 0 Active fluticasone (FLONASE) 50 MCG/ACT nasal spray spray/apply 1 spray in each nostril daily. 0 Active Calcium Carb-Cholecalciferol (Calcium-Vitamin D) 500-400 MG-UNIT TABS Take by mouth. 0 Active ferrous sulfate 325 (65 FE) MG tablet Take 325 mg by mouth every morning with breakfast. 0 Active vitamin C (ASCORBIC ACID) 250 MG tablet Take 500 mg by mouth daily. 0 Active vitamin B-12 (CYANOCOBALAMIN) 500 MCG tablet Take 500 mcg by mouth daily. 0 Active acetaminophen (Arthritis Pain Relief) 650 MG CR tablet Take 650 mg by mouth every 4 (four) hours as needed for pain. 0 Active glucose monitoring kit (FREESTYLE) monitoring kit 1 each by Does not apply route as needed for other. 0 Active isosorbide mononitrate (IMDUR) 30 MG 24 hr tablet Take 30 mg by mouth daily. 0 Active Albuterol Sulfate 108 (90 Base) MCG/ACT AEPB Inhale into the lungs. 0 Active carbidopa-levodopa (SINEMET) 25-100 MG per tablet Take 2 tablets by mouth 3 (three) times a day. 0 Active fluticasone-vilantero l (Breo Ellipta) 100-25 MCG/INH inhaler 1 inhalation by Inhaled route daily. 0 Active Clobetasol Propionate 0.05 % lotion Apply topically daily. 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 Family History Relation Name Status Comments Father Mother Social History Tobacco Use Types Packs/Day Years Used Date Smoking Tobacco: Never Smokeless Tobacco: Never Alcohol Use Standard Drinks/Week Comments Not Currently 0 (1 standard drink = 0.6 oz pur e alcohol) Sex and Gender Information Value Date Recorded Sex Assigned at Female 12/24/2023 1:35 PM EDT Gender Identity Not on file Sexual Orientation Not on file Job Start Date Occupation Industry Not on file Not on file Not on file Last Filed Vital Signs Vital Sign Reading Time Taken Comments Blood Pressure 136/60 03/31/2024 11:48 AM EDT Pulse 87 03/31/2024 11:48 AM EDT Temperature 36.4 C (97.6 F) 03/31/2024 11:48 AM EDT Respiratory Rate - - Oxygen Saturation 98% 03/31/2024 11:48 AM EDT Inhaled Oxygen Concentration - - Weight 70.3 kg (155 lb) 03/31/2024 11:48 AM EDT Height 157.5 cm (5' 2 ) 03/31/2024 11:48 AM EDT Body Mass Index 28.35 03/31/2024 11:48 AM EDT Plan of Treatment Health Maintenance Due Date Last Done Comments Pneumococcal Vaccine (1 of 2 - PCV) 01/01/1947 Depression Screening 1953 Preventative Health Evaluation 01/01/1960 DTap / Tdap / Td (1 - Tdap) 1960 Shingrix-Zoster Vaccine (1 of 2) 01/01/1992 Fall Risk Assessment 2006 Osteoporosis Screening (DEXA Scan) 2006 RSV Adult > 60+ Yrs or (1 - 1-dose 75+ series) 2016 COVID-19 Vaccine ( season) 2024 11/28/2021, 08/28/2020, 08/07/2020 Influenza Vaccine (#1) 2025 2, 04/08/2021, 04/06/2020, Additional history exists Hepatitis B Vaccines Aged Out No long er eligible based on patient's age to complete this topic RSV Ped < 20 months Aged Out No longe r eligible based on patient's age to complete this topic Care Teams Tile Finisher Relationship Specialty Start Date End Date Tuan Kaur MD [address] [address] PCP - General Internal Medicine 08/05/21
== END 2025-02-09 11:50 | disposition home or self-care (01) ==
PROVIDERS: PCP Internal Medicine; Visit Provider Nurse Practitioner Family
DX: G20.A2 Parkinson's disease without dyskinesia, with fluctuations (principal); R42 Dizziness and giddiness; G47.62 Sleep related leg cramps; G47.9 Sleep disorder, unspecified
CPT/HCPCS: 99214; G2211

== ENCOUNTER → 2025-02-09 10:24 | Outpatient (BNVA) | payer OTHER, SELFPAY | PROVIDERS: PCP Internal Medicine; Visit Provider Nurse Practitioner Family | DX: G20.A2 Parkinson's disease without dyskinesia, with fluctuations (principal); R42 Dizziness and giddiness; G47.62 Sleep related leg cramps; G47.9 Sleep disorder, unspecified | CPT/HCPCS: 99212 ==